=== PATIENT | male | born 1935 | race Caucasian/White ===

== ENCOUNTER 2017-07-29 12:01 | Inpatient (IN) | END 2017-08-01 10:49 | disposition home or self-care (01) | DRG 62 | DX: I63.9 Cerebral infarction, unspecified (principal); G81.94 Hemiplegia, unspecified affecting left nondominant side; R00.1 Bradycardia, unspecified; I10 Essential (primary) hypertension; S50.312A Abrasion of left elbow, initial encounter; S80.212A Abrasion, left knee, initial encounter; D64.9 Anemia, unspecified; E78.5 Hyperlipidemia, unspecified; Z87.891 Personal history of nicotine dependence; R47.1 Dysarthria and anarthria; E78.1 Pure hyperglyceridemia; W19.XXXA Unspecified fall, initial encounter; Z79.82 Long term (current) use of aspirin ==